=== PATIENT | male | born 1995 | race Caucasian/White ===

== ENCOUNTER → 2017-11-01 | Day surgery (SDC) | payer OTHER ==
[~2017-11-01] MED LIST: ACETAMINOPHEN 1000 MG/100 ML IV ONE; BUPIVACAINE 0.25% 30ML SDV INJ ONE; DEXAMETHASONE SOD PHOS INJ 4 MG/ML VIAL ONE; FENTANYL CITRATE/PF 100MCG/2 ML INJ ONE; KETOROLAC TROMETHAMINE 30 MG/ML VIAL ONE; LIDOCAINE HCL 2% JELLY 5 ML TUBE ONE; LIDOCAINE HCL 2% LOCAL INJ 5 ML SDV VIAL INJ ONE; MIDAZOLAM HCL 2 MG/2 ML VIAL ONE; ONDANSETRON HCL INJ 2 MG/ML VIAL ONE; PROPOFOL IV EMULSION 10 MG/ML 20 ML VIAL ONE; ROCURONIUM BROMIDE 10 MG/ML 5ML VIAL ONE; SEVOFLURANE INHAL SOLN 250 ML PEN BTL ONE
--- NOTE | 2017-11-01 08:44 | Operative Report ---
DATE OF PROCEDURE: November 01, 2017 PREOPERATIVE DIAGNOSES 1. Adenotonsillar hypertrophy. 2. Tonsilloliths. POSTOPERATIVE DIAGNOSES 1. Adenotonsillar hypertrophy. 2. Tonsilloliths. PROCEDURE: Tonsillectomy and adenoidectomy. SIGNIFICANT FINDINGS: Tonsils are 3+/3+, cryptic with tonsilloliths present. The tonsillar beds were extremely scarred. Adenoids were moderately enlarged. VACCINE CUSTOMER REPRESENTATIVE: None. ANESTHESIA: General endotracheal tube anesthesia. SPECIMENS REMOVED: Tonsils (adenoids were coblated). ESTIMATED BLOOD LOSS: Less than 1 mL. COMPLICATIONS: None. INDICATIONS: Patient is a 21-year-old male with 2 to 3 months' history of concerns regarding abnormal-appearing tonsils. The tonsils are enlarged and collect tonsilloliths in the crypts frequently which bother the patient. Patient snores nightly. There is no frequent tonsillar infections. He had no previous throat or neck surgery. On examination, the tonsils are 3+/3+, cryptic with tonsilloliths within the crypts. He is scheduled for tonsillectomy and adenoidectomy for the treatment of adenotonsillar hypertrophy and tonsilloliths. The risks and complications of the procedures were thoroughly discussed with the patient including infection; bleeding; scarring; failure to improve; need for additional operations; persistent tonsilloliths; persistent snoring; damage to teeth, tongue, gums and lips; chronic pain; voice changes; numbness of the tongue; inability to taste; scarring of the pharynx resulting in worse nasal obstruction; leakage of the fluid through the nose when drinking liquids; damage to the eustachian tube orifices causing middle ear fluid and hearing loss; need for blood transfusions; damage to surrounding nerves, blood vessels and muscles. He fully understands and gives consent. PROCEDURE: Patient was taken to the operating room and placed supine on the operating table where general anesthesia was achieved through orotracheal intubation. Eyes were taped. Shoulder roll was placed. Head and body were draped. Table was turned 90 degrees with the head towards the surgeon. Decadron was administered. A Felicita-Kenji mouth gag was inserted without difficulty and placed in suspension on the Bullock stand. There is no evidence of bifid uvula, diastasis of the muscular uvulae or notched hard palate. Examination of the nasopharynx revealed the adenoids to be moderately hypertrophied. The left tonsil was grasped with a tonsillar Allis clamp and was removed with the ArthroCare coblator on a setting of 6 on cut mode, taking care to stay right around the capsule of the tonsil. The right tonsil was removed in the same way. Both tonsillar beds were significantly scarred. Tonsilloliths were present within the substance of the tonsils within the crypts. Hemostasis was obtained with the coblator on a setting of 3 and coag mode. Following this, the adenoids were then removed with the ArthroCare coblator on a setting of 8 on cut mode, taking care to avoid trauma to the torus tubarius bilaterally. Hemostasis was obtained with the coblator on a setting of 3 on coag mode. Injection with 3 mL of 1/4 percent plain Marcaine was injected into the free edges of the anterior and posterior tonsillar pillars. Thorough irrigation was then performed. The stomach contents were suctioned with an NG tube. The red rubber catheters and Felicita-Kenji mouth gag were then removed without difficulty, revealing no trauma to the teeth, tongue, gums and lips. Patient was awakened in the operating room, extubated and taken to the recovery room in good condition. Job#: [id number]
[2017-11-01 08:55] VITALS: BP 119/62
== END | disposition home or self-care (01) ==
LOC: OR 05:24
PROVIDERS: ATTEND Otolaryngology
DX: J35.3 Hypertrophy of tonsils with hypertrophy of adenoids (principal)
CPT/HCPCS: 42821; 88304; J1100; J1885; J2001 ×2; J2250; J2405